=== PATIENT | female | born 1925 | race Caucasian/White ===

== ENCOUNTER 2016-12-05 22:06 | Inpatient (IN) | payer MEDICARE ==
[~2016-12-05] VITALS: Ht 162.6 cm; Wt 65.8 kg
[2016-12-05] MEDS ORDERED: VALS1TAB46 PO (22:50)
[2016-12-05] MEDS ORDERED: LEVO25TA5 PO (22:50)
[2016-12-05] MEDS ORDERED: AMLO5TAB2 PO (22:51)
[2016-12-05] MEDS ORDERED: ASPI81TA85 PO (22:52)
[2016-12-05] MEDS ORDERED: CENT1TAB PO (22:54)
[2016-12-05] MEDS ORDERED: ALEV220C2 PO (22:54)
[2016-12-05] MEDS ORDERED: D32000CA PO (22:54)
--- NOTE | 2016-12-05 23:20 | REPUSA ---
CT of the cervical spine Clinical history: Pain. Trauma. Technique: Multiple axial CT images were obtained through the cervical spine without administration o f contrast. Coronal and sagittal 3-D reconstructed images were also obtained. Comparison: None. Findings: The cervical vertebral bodies are in satisfactory positioning and alignment. No fractures or dislocat ions are demonstrated. The odontoid process is intact. Intervertebral disc spaces are moderately narr owed at all cervical vertebral levels. There is no evidence of facet subluxation. The neural foramen appear grossly patent. The cervical cranial junction is intact. The cervical spinal canal demonstrate s normal caliber and contour without evidence of spinal stenosis. The surrounding soft tissues are wi thin normal limits. Impression: No acute fracture or traumatic injury. Multilevel degenerative disc disease is noted thro ughout the cervical spine.
--- NOTE | 2016-12-05 23:20 | REPUSA ---
CT of the head Clinical history: trauma. Protocol: Multiple axial CT images obtained with 5 mm slice thickness were obtained through the head without administration of contrast. Findings: The ventricles and sulci are symmetric but prominent in size bilaterally. There are periven tricular areas of low attenuation throughout the deep white matter. There is acute subdural hemorrhag e demonstrating the left frontal lobe. There is also a small amount of hyperdensity in the right fron luciano lobe which could represent small amount of blood. There is no midline shift, mass effect, or extr a-axial fluid collection. The osseous structures are unremarkable. The visualized paranasal sinuses a nd mastoid air cells are clear. Impression: 1. Moderate sized subdural hemorrhage in the left frontal lobe, with small foci of subdural blood dem onstrated in the right frontal lobe. 2. Findings are otherwise consistent with age-related atrophy and chronic small vessel ischemic disea se. ER physician was notified of these findings at 11:14 PM on 2016.
[2016-12-05 23:26] LABS: BASO # 0.1 K/mm3 (0.0-0.2); BASO % 0.5 % (0.0-1.0); EOS # 0.2 K/mm3 (0.0-0.50); EOS % 1.4 % (0.0-3.0); LARGE UNSTAINED CELL # 0.2 K/mm3 (0.0-0.4); LYMPH # 2.1 K/mm3 (1.5-4.5); LYMPH % 17.4 % (24.0-44.0); MEAN CORPUSCULAR HEMOGLOBIN 31.4 pg (27.0-33.0); MEAN CORPUSCULAR HGB CONC 33.8 g/dl (32.0-36.5); MEAN CORPUSCULAR VOLUME 93.1 fl (80.0-96.0); MONO # 0.7 K/mm3 (0.0-0.8); MONO % 6.2 % (0.0-5.0); NEUTROPHILS # 7.8 K/mm3 (1.8-7.7); NEUTROPHILS % 72.5 % (36.0-66.0); PLATELET COUNT, AUTOMATED 218 k/mm3 (150-450); RED CELL DISTRIBUTION WIDTH 12.4 % (11.5-14.5); WHITE BLOOD COUNT 10.8 K/mm3 (4.0-10.0)
[2016-12-06] VITALS (10 sets, daily range): BP systolic 147–202; BP diastolic 65–81
[2016-12-06] MEDS ORDERED: LEVO50TA45 PO (00:01)
[2016-12-06] MEDS ORDERED: VITMTA PO (00:01)
[2016-12-06 00:13] LABS: CALCIUM LEVEL 9.2 MG/DL (8.8-10.2); CREATININE FOR GFR 1.28 MG/DL (0.55-1.02); GLOMERULAR FILTRATION RATE 41.8 (>32); POTASSIUM SERUM 4.3 MEQ/L (3.5-5.1)
[2016-12-06] MEDS: ACETAMINOPHEN TAB 650MG DOSE (2X325MG) PO SCH ×2 (01:29→06:13)
--- NOTE | 2016-12-06 01:57 | CR ---
DATE OF CONSULTATION: 12/05/2016 REQUESTING ATTENDING PHYSICIAN: Dr. Connors, neurosurgery. REASON FOR CONSULTATION: Medical management. HISTORY OF PRESENT ILLNESS: The patient is an 89-year-old white female with history of high blood pressure, presented to the emergency room (ER) for evaluation of fall. History is provided by herself. The patient is from [place] and she is visiting her son in the area. This evening she fell at home. She denies any syncope or seizure activity. The family brought her here for further evaluation. In the ER, she underwent CT scan of her head, which demonstrated mild subdural hemorrhage. Neurosurgical service admitted her. Meanwhile, medicine service was requested for consultation regarding her medical management. REVIEW OF SYSTEMS: Denies fever. No chills. No headache. No blurry vision. No shortness of breath. No neck pain. No chest pain. No abdominal pain. No tingling, numbness, weakness in the arms, lower extremities. All other systems reviewed were negative. PAST MEDICAL HISTORY: 1. Hypertension. 2. Hypothyroidism. PAST SURGICAL HISTORY: Status post hysterectomy. SOCIAL HISTORY: Denies tobacco use. Denies alcohol abuse. Denies illicit drug abuse. She is FULL CODE. FAMILY HISTORY: Both parents . No family history of stroke or brain hemorrhage. ALLERGIES: No known drug allergies. MEDICATIONS: - Diovan 80 mg by mouth daily - amlodipine 5 mg by mouth daily - aspirin 81 mg by mouth daily - thyroid 50 mcg by mouth daily - multiple vitamin once a day PHYSICAL EXAMINATION: VITAL SIGNS: Temperature 98, heart rate 82, respirations 18, blood pressure 170/80, and oxygen saturation 98% on room air. GENERAL: She is awake, alert, oriented times three. She is not in acute distress. HEENT: Atraumatic. Pupils are equal, round and reactive to light. No jaundice. Ears, nose, and throat are normal. Moist mucosa. Moist neck. No jugular venous distention (JVD). No tenderness. LUNGS: Clear, no wheezing, no crackles. HEART: S1, S2 regular. She has a 4/6 systolic murmur in her heart base. ABDOMEN: Soft. Bowel sounds positive. Nontender. LOWER EXTREMITIES: No edema in bilateral lower extremities. NEUROLOGICAL: Nonfocal. SKIN: No rash. PSYCHOLOGICAL: No acute psychosis. DIAGNOSTIC LABORATORY STUDIES: Including the following: CBC and differential: WBC 10, hemoglobin and hematocrit 13/30, platelets 218. Sodium 138, potassium 4.3, BUN 33, creatinine 1.2, glucose 154. Cervical spine CT did not show any fractures. Head CT showed small to moderate sized subdural hemorrhage in the left frontal lobe. IMPRESSION: 1. Subdural hemorrhage, small, without any neurological deficit, due to a fall. 2. Hypertension. 3. Hypothyroidism. PLAN: Patient will be admitted to the progressive care unit (PCU) per neurosurgical service. I will restart her antihypertensive medications, will hold aspirin. Dr. Darden from medicine service will followup. GERRI
[2016-12-06] MEDS: LEVOTHYROXINE 50MCG TABLET (0.05MG) PO SCH (06:13)
--- NOTE | 2016-12-06 06:34 | ECGEPIP ---
Stationary ECG Study [facility] - ED Test Date: 2016-12-06 Pat Name: DEAN MEDEIROS Department: Room: [place] [address] Gender: F Baler: CAM : [id number] Requested By: Jann Nathan Order Number: [id number] Reading MD: Jann Mazariegos Measurements Intervals Carbon Rate: 85 P: 62 CT: 187 QRS: -24 QRSD: 113 T: 60 QT: 402 QTc: 479 Interpretive Statements SINUS RHYTHM WITH OCCASIONAL VENTRICULAR PREMATURE COMPLEXES LEFT ATRIAL ENLARGEMENT BORDERLINE LEFT AXIS DEVIATION MODERATE INTRAVENTRICULAR CONDUCTION DELAY NO PRIORS Electronically Signed On 12-06-2016 6:33:50 EDT by Jann Mazariegos
[2016-12-06 07:55] LABS: MEAN CORPUSCULAR HEMOGLOBIN 31.7 pg (27.0-33.0); MEAN CORPUSCULAR HGB CONC 34.1 g/dl (32.0-36.5); MEAN CORPUSCULAR VOLUME 92.8 fl (80.0-96.0); RED CELL DISTRIBUTION WIDTH 12.5 % (11.5-14.5); WHITE BLOOD COUNT 8.1 K/mm3 (4.0-10.0)
[2016-12-06 08:26] LABS: CALCIUM LEVEL 9.1 MG/DL (8.8-10.2); GLOMERULAR FILTRATION RATE 55.6 (>32); POTASSIUM SERUM 4.4 MEQ/L (3.5-5.1)
[2016-12-06] MEDS: VALSARTAN 80 MG TAB (DIOVAN) PO SCH (08:50)
[2016-12-06] MEDS: amLODIPine 5 MG TAB PO SCH ×2 (08:50→20:19)
[2016-12-06] MEDS: MULTIVITAMINS/MINERALS THERAP 1 TAB PO SCH (08:50)
[2016-12-06] MEDS: VITAMIN D 1,000 INTERNATIONAL UNITS TABLET PO SCH (08:50)
[2016-12-06] MEDS ORDERED: amLODIPine 5 MG TAB PO SCH (09:00)
[2016-12-06] MEDS ORDERED: ACETAMINOPHEN TAB 650MG DOSE (2X325MG) PO PRN (09:30)
[2016-12-06] MEDS ORDERED: ISOVUE-370 76% 100ML VIAL (Q9967) As Ordered ONE (09:42)
--- NOTE | 2016-12-06 09:55 | REP ---
REASON: Pain after trauma. COMPARISON: None. FINDINGS: The technique utilized in obtaining the radiograph has magnified the cardiac silhouette and accentuated the interstitial markings. The superior mediastinal structures are midline. The cardiac silhouette is unremarkable in size, shape, and position. The diaphragmatic surfaces of the lungs are regular, and the costophrenic angles are clear. The pulmonary romero are clear. The imaged osseous structures are intact. IMPRESSION: There is no acute cardiopulmonary disease. Signed by Marko Tapia DO 12/06/2016 10:17 A
--- NOTE | 2016-12-06 10:45 | REP ---
REASON: Followup subdural hematoma. COMPARISON: Yesterday at 11:00 p.m. Increased density is again seen along the insular cortex on the left status quo. There is a small focus of increased density seen in the right frontal lobe deep white matter status quo. There are no other intracranial hemorrhages and there is no evidence of significant change from the prior exam. IMPRESSION: Stable intraparenchymal hemorrhages as described above. Signed by Marko Tapia DO 12/06/2016 11:13 A
--- NOTE | 2016-12-06 15:07 | IPN ---
DATE: 12/06/2016 SUBJECTIVE: The patient is seen and examined at the bedside. Chart has been reviewed. This morning, the patient has a cervical collar. Telemetry is unremarkable. Blood pressure is improved to 147-157 on current dose of Norvasc 5 mg daily. Currently denies any upper or lower extremity weakness, numbness sensation, dysphagia, odynophagia, slurred speech. No issues per nursing. Anxious to go home and eat. OBJECTIVE: VITAL SIGNS: Temperature 97.2, pulse 76, respiratory rate 20, blood pressure 157/69, 99% on room air. GENERAL: The patient is awake, alert, and oriented times three. Pupils equal, round, and reactive to light and accommodation. Extraocular muscles are intact. Normocephalic. Patient with cervical collar. Moist mucous membranes. LUNGS: Clear to auscultation. No wheezes, rales, or rhonchi. HEART: S1, S2 sinus rhythm. ABDOMEN: Soft, nontender, nondistended. EXTREMITIES: No pitting edema. NEUROLOGIC: Patient's motor function 5/5 times four extremities. Gait was not tested. The patient speaks in full sentences. No dysmetria on [id number] testing. No sensory disturbance. LABORATORY DATA: 12/05 CBC and metabolic panel have been reviewed. IMAGING: CT of the head shows moderate-sized subdural hematoma left frontal lobe, and small foci of subdural blood in the right frontal lobe. Findings consistent with chronic small vessel ischemic disease, age-related atrophy. Cervical spine CT: No acute fracture. Multiple degenerative disc disease noted throughout the cervical spine. ASSESSMENT AND PLAN: An 89-year-old female with history of hypothyroidism, hypertension, presented status post a fall at home with subdural hemorrhage, no neurological deficits. Hospitalist service was called for management of chronic medical problems. CURRENT ISSUES: 1. Subdural hematoma managed by primary team. Avoid non-steroidal anti-inflammatory drugs (NSAIDs) and blood thinners. Continue on compression stockings for deep venous thrombosis (DVT) prophylaxis. 2. Hypertension, improvement. Will change Norvasc to 5 mg twice a day and continue valsartan 80 mg daily. 3. Hypothyroidism. Check thyroid stimulating hormone (TSH). Continue on levothyroxine. DISPOSITION: The patient is anxious to eat and to go home today, but will defer to primary team regarding keeping the patient nothing by mouth for any possible neurosurgical intervention. The patient will need home care. She lives alone, and her son and [id number] live in [place], and will need to return due to work responsibilities today. The patient has no other support system in the area. She will need home care at discharge.
--- NOTE | 2016-12-06 20:24 | CR ---
DATE OF CONSULTATION: 12/06/2016 REFERRING PHYSICIAN: Dr. Lopez Connors REASON FOR CONSULTATION: Fall and intracerebral hemorrhages. HISTORY: Brianda Tobin is an 89-year-old woman with history of hypertension who presented to [facility] emergency department after a fall. History was obtained from the patient and her son who was present in intensive care unit room. The patient is from [place] and she is visiting her son in this area. She was at home and was feeling great and had her slippers on and was going upstairs. It was around 09:15 p.m. There was no warning and next thing she remembers is that her son was trying to help her off the floor where she had fallen 14 flights of stairs. She denies any warning. Her son who heard the noise, was able to reach her within seconds after she fell. She does not remember the fall but does not think that she lost consciousness. She appeared disoriented. Son called [id number] and he was brought to [facility]. She was taking aspirin 81 mg daily before she fell. She denies any head injuries in past. She denies any headaches, neck pain or back pain. She denies any medication changes or sickness recently. She denies passing out spells or seizures in past. PAST MEDICAL HISTORY: Hypertension, hypothyroidism, hysterectomy. SOCIAL HISTORY: She denies smoking, alcohol or illicit drugs. FAMILY HISTORY: Her parents are . There is no family history of stroke or cerebral hemorrhage. ALLERGIES: None. HOME MEDICATIONS: - Diovan 80 mg by mouth daily - amlodipine 5 mg by mouth daily - aspirin 81 mg by mouth daily - levothyroxine 50 mcg by mouth daily - multivitamin one tablet by mouth daily REVIEW OF SYSTEMS: All systems were reviewed and found to be noncontributory except as mentioned in history present illness. PHYSICAL EXAMINATION: Temperature 97.5, pulse 77, respiratory rate 20, blood pressure 192/79, 99% saturation on room air. Heart: Regular rate and rhythm. Lungs: Clear to auscultation. No pedal edema. Ear, nose, and throat examination is within normal limits. No gross musculoskeletal abnormalities. The patient is awake, alert, oriented to place, person and time. Normal speech comprehension and repetition. Extraocular muscles are intact. No facial weakness. Tongue and uvula are midline. Recent and distant memory is intact. 5/5 strength in all four extremities. Deep tendon reflexes are 2+ throughout. Normal sensation. Plantars are downgoing. Gait is mildly unsteady. DIAGNOSTIC STUDIES: CT scan of head was reviewed and showed small left frontal and central intracerebral hemorrhage with mild subarachnoid hemorrhage which appears improved on today's CT scan of head. ASSESSMENT: 1. Suspected posttraumatic left frontal and central intracerebral and subarachnoid hemorrhage. 2. There is concern for syncope and seizure. PLAN: 1. CT angiography of head to rule out cerebral aneurysm. 2. EEG. 3. I had detailed discussions with the patient and her son about risk of posttraumatic seizures and use of antiepileptic drugs. We will hold off from any anti-epileptic drugs unless EEG is suggestive of epileptic potential. 4. Physical and occupational therapy. 5. Repeat CT scan of head tomorrow. 6. Follow with our office in 3-4 weeks after hospital discharge.
[2016-12-07] VITALS (25 sets, daily range): BP systolic 54–207; BP diastolic 31–84
[2016-12-07] MEDS: LEVOTHYROXINE 50MCG TABLET (0.05MG) PO SCH (06:18)
[2016-12-07] MEDS ORDERED: CHLORTHALIDONE 25 MG TAB PO ONE (07:00)
[2016-12-07] MEDS ORDERED: CANDESARTAN 4MG TABLET PO ONE (07:00)
--- NOTE | 2016-12-07 07:49 | IPN ---
DATE: 12/07/2016 No issues overnight per nursing. Telemetry remains unremarkable, sinus rhythm. She has no new complaints this morning. Denies any headaches, changes in vision, numbness, tingling sensation bilateral upper or lower extremities or any weakness. Denies any dysphagia, odynophagia. Speaks in full sentences. No respiratory distress. No respiratory distress. No complaints of chest pain, pressure or tightness, shortness of breath, palpitations, lightheadedness or dizziness. Temperature 98.7, pulse 71, respiratory rate 20, blood pressure 167/72, 97% on room air. Generally, patient is awake, alert, oriented to person, place and time. She is answering questions appropriately. Speech is fluent. No facial asymmetry. Tongue is midline. No cervical lymphadenopathy or thyromegaly. Pupils are round and reactive to light and accommodation. Extraocular muscles are intact. Normocephalic, atraumatic. Lungs are clear to auscultation. No wheezing, rales or rhonchi. Heart: S1 and S2, sinus rhythm. Abdomen soft, nontender, nondistended. Positive bowel sounds times four quadrants. No rebound, guarding or hepatosplenomegaly. Extremities: No cyanosis or clubbing. Motor function 5/5 times four extremities. Gait was not tested. No dysmetria on [id number]-[id number] testing. LABORATORY DATA: White count 8, hemoglobin 11.9, hematocrit 35, platelet count 191. Sodium 138, potassium 4.4, chloride 104, bicarbonate 27, BUN 34, creatinine 1, and glucose of 121. IMAGING STUDY: CT angiography of the brain, pending official report, within normal limits on preliminary report on [facility]. ASSESSMENT AND PLAN: This is an 89-year-old female who lives alone, son and [id number] live in [place], history of hypothyroidism, hypertension, presented status post fall at home with subdural hemorrhage with no neurological deficits. Hospitalist service was consulted for management of chronic medical problems. CURRENT ISSUES: 1. Subdural hematoma managed by primary team. Avoid nonsteroidal anti- inflammatory drugs (NSAIDs) and blood thinners. Currently on compression stockings. No aneurysm noted in the on the CT of brain done yesterday. EEG to rule out seizure activity. Will repeat CT of the head without contrast this morning. Continue with neuro checks. 2. Hypertension uncontrolled. Continue Norvasc 5 mg twice a day, valsartan 80 mg daily and add chlorthalidone 25 mg daily - hold for systolic pressure less than 140. 3. Acute kidney injury resolved. Patient is to have physical therapy (PT) evaluation today. Patient and family services (PFS) has been consulted as patient will need home car at discharge due to patient living alone with no other family support system.
[2016-12-07] MEDS: VALSARTAN 80 MG TAB (DIOVAN) PO SCH (08:27)
[2016-12-07] MEDS: amLODIPine 5 MG TAB PO SCH (08:27)
[2016-12-07] MEDS: VITAMIN D 1,000 INTERNATIONAL UNITS TABLET PO SCH (08:27)
[2016-12-07] MEDS: MULTIVITAMINS/MINERALS THERAP 1 TAB PO SCH (08:28)
--- NOTE | 2016-12-07 09:33 | REP ---
History: Intracranial hemorrhage A small amount of acute hemorrhage is present along the insular cortex of the left temporal lobe. A punctate focus of hemorrhage is present in the right frontal lobe. These are unchanged compared the previous study. Areas of decreased attentuation are present in the periventricular white matter. This represents small vessel ishemic disease. An area of decreased attentuation is present in the left thalamus. This presents an old lacunar infarction. The ventricular system and cortical sulci are dilated consistent with mild volume loss. There is no extracerebral collection. IMPRESSION: 1. There has been no change in the hemorrhage present along the left insular cortex and right frontal lobe compared to the previous study. 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 3. Small vessel ischemic disease. 4. Mild volume loss. Signed by Uziel Art MD 12/07/2016 09:51 A
--- NOTE | 2016-12-07 10:07 | REP ---
CT ANGIO HEAD: HISTORY: Rule out aneurysm. CONTRAST: Isovue 370, 75 mL. There is no aneurysm or arteriovenous malformation. Calcified atherosclerotic plaques are present in the cavernous and supraclinoid internal carotid arteries. These produce mild to moderate stenosis. Calcified atherosclerotic plaques are present in the distal vertebral arteries at the craniovertebral junction. There is no significant stenosis. Major intracranial vessels are patent. The left vertebral artery is dominant. IMPRESSION: 1. There is no aneurysm or arteriovenous malformation. 2. Atherosclerotic disease as described above. Signed by Uziel Art MD 12/07/2016 10:33 A
[2016-12-07] MEDS ORDERED: VALSARTAN 80 MG TAB (DIOVAN) PO ONE (11:00)
[2016-12-07] MEDS ORDERED: cloNIDine 0.2 MG TAB PO ONE (11:45)
[2016-12-07] MEDS ORDERED: SODIUM CHLORIDE 0.9% 1000 ML IV ONE (14:00)
[2016-12-07] MEDS ORDERED: amLODIPine 5 MG TAB PO ONE (21:00)
--- NOTE | 2016-12-07 21:54 | IPNPDOC ---
Date Seen The patient was seen on 12/07/16. Progress Note NEUROSURGERY-- ADEOLA Cox dictating note on behalf of Dr Connors. I had no interaction with the patient today. Admission day: 2 Pain Control: satisfactory. She has been evaluated by neurology-- Holding off on anti-epileptic until EEG results. She denies any new symptoms today. She states her children are in [place]. Her son owns a condo on [address] and they were spending the weekend there. The family has returned to [place] and she does not have family in town here. LABS: (12/06/16) WBC: 8.1 HGB: 11.9, L Na+: 138 K+: 4.4 Fasting glucose: 121, H IMAGIN12/06/16, CT Angio head. No aneurysm or arteriovenous malformation. ASSESSMENT: Stable. PLAN: 1. Subdural hematoma s/p fall. Stay off aspirin for 2 weeks. Plan for EEG in the morning. She will need to follow up with neurology after discharge. No need to follow up with NSx. Additional plans per Dr Connors. 2. Pain control: satisfactory with Tylenol 650 mg PO q 6 hrs PRN. VS, I&O, 24H, Fishbone Vital Signs/I&O Vital Signs Date Time Temp Pulse Resp B/P (MAP) Pulse Ox O2 Delivery O2 Flow Rate FiO2 12/07/16 16:15 67 111/54 (73) 12/07/16 16:00 97.8 20 94 Room Air I&O- Last 24 Hours up to 6 AM 12/07/16 05:59 Intake Total 960 ml Output Total 700 ml Balance 260 ml ALEXYS BINGHAM PA-C Dec 07, 2016 21:49
[2016-12-08] VITALS (26 sets, daily range): BP systolic 122–195; BP diastolic 57–96
[2016-12-08] MEDS: LEVOTHYROXINE 50MCG TABLET (0.05MG) PO SCH (06:01)
[2016-12-08 07:22] LABS: BASO % 0.5 % (0.0-1.0); EOS # 0.2 K/mm3 (0.0-0.50); LARGE UNSTAINED CELL # 0.2 K/mm3 (0.0-0.4); LYMPH # 1.8 K/mm3 (1.5-4.5); LYMPH % 19.8 % (24.0-44.0); MEAN CORPUSCULAR HEMOGLOBIN 31.4 pg (27.0-33.0); MEAN CORPUSCULAR HGB CONC 33.1 g/dl (32.0-36.5); MEAN CORPUSCULAR VOLUME 94.7 fl (80.0-96.0); MONO # 0.6 K/mm3 (0.0-0.8); NEUTROPHILS # 5.6 K/mm3 (1.8-7.7); NEUTROPHILS % 68.7 % (36.0-66.0); PLATELET COUNT, AUTOMATED 184 k/mm3 (150-450); RED CELL DISTRIBUTION WIDTH 12.7 % (11.5-14.5); WHITE BLOOD COUNT 8.2 K/mm3 (4.0-10.0)
[2016-12-08 07:48] LABS: ANION GAP 8 MEQ/L (8-16); BLOOD UREA NITROGEN 34 MG/DL (7-18); CALCIUM LEVEL 8.7 MG/DL (8.8-10.2); CARBON DIOXIDE LEVEL 27 MEQ/L (21-32); CHLORIDE LEVEL 107 MEQ/L (98-107); CHOLESTEROL LEVEL 160 MG/DL (<200); CREATININE FOR GFR 0.88 MG/DL (0.55-1.02); GLOMERULAR FILTRATION RATE > 60.0 (>32); GLUCOSE, FASTING 97 MG/DL (83-110); POTASSIUM SERUM 4.1 MEQ/L (3.5-5.1); SODIUM LEVEL 142 MEQ/L (136-145); TRIGLYCERIDES LEVEL 93 MG/DL (<150)
[2016-12-08] MEDS: MULTIVITAMINS/MINERALS THERAP 1 TAB PO SCH (08:42)
[2016-12-08] MEDS: VITAMIN D 1,000 INTERNATIONAL UNITS TABLET PO SCH (08:43)
[2016-12-08] MEDS: CHLORTHALIDONE 25 MG TAB PO SCH (08:43)
[2016-12-08] MEDS ORDERED: VALSARTAN 80 MG TAB (DIOVAN) PO SCH (09:00)
[2016-12-08] MEDS ORDERED: CANDESARTAN 4MG TABLET PO SCH (09:00)
[2016-12-08] MEDS ORDERED: METOPROLOL TART 25 MG TABLET PO SCH (12:30)
[2016-12-08] MEDS: METOPROLOL TART 12.5 MG PER 1/2 TAB PO SCH ×2 (12:36→19:19)
--- NOTE | 2016-12-08 18:27 | IPN ---
DATE: 12/08/2016 SUBJECTIVE: The patient is seen and examined in the room today. The patient denies any acute complaints. Denies any neurological changes. OBJECTIVE: VITAL SIGNS: Temperature is 99.2, pulse is 68, respiration rate 20, blood pressure is 167/74, pulse oximetry is 97% in room air. GENERAL: No sign of acute distress. Alert and oriented times three. HEENT: Normocephalic, atraumatic. Extraocular motor grossly intact. CARDIOVASCULAR: Positive S1, S2, regular rate. LUNGS: Clear to auscultation bilaterally. ABDOMEN: Soft, nontender, nondistended. Bowel sounds present. EXTREMITIES: No edema, no sign of cyanosis. LABORATORY DATA: WBC 8.2, hemoglobin 11.2, hematocrit 33.8, platelet count is 184. Sodium is 142, potassium 4.1, chloride is 107, carbon dioxide 27, BUN 34, creatinine 0.88, GFR greater than 60, fasting glucose 97, calcium is 8.7, triglycerides 93, total cholesterol is 160, LDL is 92.4, HDL is 49. ASSESSMENT AND PLAN: 1. Subdural hematoma. Primary team was neurosurger; however, the neurosurgeon does not feel the patient requires any intervention and continue with medical management. The patient will have an electroencephalogram (EEG) performed today. Continue with neurologic checks. Repeat CT of the head was performed yesterday, which did not show any worsening of the hematoma. 2. Uncontrolled hypertension. The patient continues to have large fluctuation of blood pressures. The patient's Norvasc increased to 10 mg by mouth nightly. The patient is also on chlorthalidone 25 mg by mouth daily. The patient is also on metoprolol tartrate 12.5 mg by mouth twice a day. The patient is also on valsartan 160 mg by mouth twice a day. Will continue to monitor the patient's blood pressures. There was an incident on 12/07/2016 where the patient had uncontrolled hypertensive urgency. Systolic blood pressure was greater than 207 and multiple adjustments were made, and the patient had acute decrease of blood pressure and heart rate. The MAP was 39 with heart rate less than 50s. Will be very cautious regarding the patient's blood pressure medication at this time. 3. Hypothyroidism. Normal thyroid-stimulating hormone (TSH). The patient is on Synthroid 50 mcg by mouth daily. 4. Deep vein thrombosis (DVT) prophylaxis. Currently due to subdural hematoma, no anticoagulation. The patient is on knee-high sequential compression.
[2016-12-08] MEDS: VALSARTAN 80 MG TAB (DIOVAN) PO SCH (19:19)
[2016-12-08] MEDS: amLODIPine 10 MG TAB PO SCH (21:28)
[2016-12-09] VITALS (12 sets, daily range): BP systolic 139–181; BP diastolic 64–82
[2016-12-09 05:13] LABS: MEAN CORPUSCULAR HEMOGLOBIN 31.7 pg (27.0-33.0); MEAN CORPUSCULAR HGB CONC 33.9 g/dl (32.0-36.5); MEAN CORPUSCULAR VOLUME 93.5 fl (80.0-96.0); RED CELL DISTRIBUTION WIDTH 12.5 % (11.5-14.5); WHITE BLOOD COUNT 9.2 K/mm3 (4.0-10.0)
[2016-12-09 05:38] LABS: ANION GAP 10 MEQ/L (8-16); BLOOD UREA NITROGEN 30 MG/DL (7-18); CALCIUM LEVEL 8.5 MG/DL (8.8-10.2); CARBON DIOXIDE LEVEL 26 MEQ/L (21-32); CHLORIDE LEVEL 105 MEQ/L (98-107); CREATININE FOR GFR 0.85 MG/DL (0.55-1.02); GLOMERULAR FILTRATION RATE > 60.0 (>32); GLUCOSE, FASTING 108 MG/DL (83-110); POTASSIUM SERUM 3.9 MEQ/L (3.5-5.1); SODIUM LEVEL 141 MEQ/L (136-145)
[2016-12-09] MEDS: LEVOTHYROXINE 50MCG TABLET (0.05MG) PO SCH (05:51)
--- NOTE | 2016-12-09 07:37 | EEG ---
DATE OF PROCEDURE: 12/08/2016 REFERRING PHYSICIAN: Dr. Lopez Connors REASON FOR EEG: Rule out seizure. HISTORY: The patient is an 89-year-old woman who was admitted at [facility] due to post-traumatic left frontal intracerebral and subarachnoid hemorrhage. This EEG was done to rule out epileptic potential. She is currently on valsartan, amlodipine, chlorthalidone, levothyroxine. TECHNICAL DESCRIPTION: This digital EEG was recorded by 21 scalp, ear and two EKG electrodes and was reviewed in bipolar and referential montages following reformatting in 10-20 international electrode placement system. INTERPRETATION: The patient was noted to be in awake and drowsy states during this EEG. Resting awake background rhythm consisted of well-formed posterior dominant flow with anterior/posterior gradient comprising of 9 Hz alpha activity measuring 15- 40 microvolts in amplitude, both symmetric and reactive to eye opening. Attenuation of posterior dominant was seen during transition into drowsiness. Stage I and II sleep were reviewed and were symmetric bilaterally. Hyperventilation could not be performed. Photic stimulation remained unremarkable. EKG revealed normal sinus rhythm. No focal, lateralizing or epileptiform abnormalities were seen. No clinical or electrographic seizures were recorded. CONCLUSION: This EEG in awake, drowsy states, stage I and II sleep is within normal limits.
[2016-12-09] MEDS: METOPROLOL TART 12.5 MG PER 1/2 TAB PO SCH ×2 (09:33→20:19)
[2016-12-09] MEDS: VITAMIN D 1,000 INTERNATIONAL UNITS TABLET PO SCH (09:33)
[2016-12-09] MEDS: VALSARTAN 80 MG TAB (DIOVAN) PO SCH ×2 (09:33→20:19)
[2016-12-09] MEDS: MULTIVITAMINS/MINERALS THERAP 1 TAB PO SCH (09:33)
[2016-12-09] MEDS: CHLORTHALIDONE 25 MG TAB PO SCH (09:33)
--- NOTE | 2016-12-09 17:14 | IPN ---
DATE: 12/09/2016 SUBJECTIVE: The patient is seen and examined in the room today. The patient denies any acute complaints or acute changes. 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 Denies any neurological changes. The patient still has intermittent hypertension. Denies any acute pain. OBJECTIVE: VITAL SIGNS: Temperature 98.9, pulse is 69, respirations 18, blood pressure is 157/69, pulse oximetry is 95% in room air. GENERAL: No sign of acute distress, alert and oriented times three. HEENT: Normocephalic, atraumatic. Extraocular motor grossly intact. CARDIOVASCULAR: Positive S1, S2, regular rate. LUNGS: Clear to auscultation bilaterally. ABDOMEN: Soft, nontender, nondistended. Bowel sounds present. No rebound. No guarding. EXTREMITIES: No edema. No sign of cyanosis. LABORATORY DATA: WBC 9.2, hemoglobin 11.5, hematocrit 34.1, platelet count is 205. Sodium is 141, potassium 3.9, chloride 105, carbon dioxide 26, BUN 30, creatinine 0.85, GFR greater than 60, fasting glucose 108, calcium is 8.5. ASSESSMENT AND PLAN: 1. Subdural hematoma. Neurosurgery does not feel that the patient requires any intervention and they will sign off the case. They recommend continuing with medical management. We will followup with electroencephalogram (EEG). Continue with neurologic checks every six hours. Currently, the patient does not have any neurological deficit. The patient continues to work with physical therapy. Unfortunately, the patient is not cleared for discharge at this moment. 2. Uncontrolled hypertension. The patient continues to have large fluctuation of her blood pressures. Blood pressure medication is being actively adjusted. On 12/07/2016, the patient had a persistent, uncontrolled hypertensive urgency and medications were adjusted, but there was an incident when the patient's mean arterial pressure (MAP) dropped down to 35 with a heart rate less than 50. The patient's vital signs recovered with withholding the medication. Now, we will adjust the blood pressure medication with caution. Currently, the patient does not have any blood pressure greater than 180. Blood pressure averages between 140s to 160s. The patient already maxed the dosage for Norvasc and valsartan. The patient is currently on chlorthalidone and metoprolol. 3. Hypothyroidism. Normal thyroid-stimulating hormone (TSH), on Synthroid 50 mcg by mouth daily. 4. Deep vein thrombosis (DVT) prophylaxis. Due to the subdural hematoma, no anticoagulation for the patient. The patient is on thromboembolic-deterrent stockings (TEDS) and sequential compression device.
[2016-12-09] MEDS: amLODIPine 10 MG TAB PO SCH (20:19)
[2016-12-10] MEDS: LEVOTHYROXINE 50MCG TABLET (0.05MG) PO SCH (05:53)
[2016-12-10 06:05] VITALS: BP 140/68
[2016-12-10 06:48] LABS: ANION GAP 10 MEQ/L (8-16); BLOOD UREA NITROGEN 27 MG/DL (7-18); CALCIUM LEVEL 8.6 MG/DL (8.8-10.2); CARBON DIOXIDE LEVEL 27 MEQ/L (21-32); CHLORIDE LEVEL 102 MEQ/L (98-107); CREATININE FOR GFR 0.88 MG/DL (0.55-1.02); GLOMERULAR FILTRATION RATE > 60.0 (>32); GLUCOSE, FASTING 95 MG/DL (83-110); POTASSIUM SERUM 3.8 MEQ/L (3.5-5.1); SODIUM LEVEL 139 MEQ/L (136-145)
[2016-12-10 06:50] LABS: MEAN CORPUSCULAR HEMOGLOBIN 32.2 pg (27.0-33.0); MEAN CORPUSCULAR HGB CONC 35.2 g/dl (32.0-36.5); MEAN CORPUSCULAR VOLUME 91.5 fl (80.0-96.0); RED CELL DISTRIBUTION WIDTH 12.6 % (11.5-14.5); WHITE BLOOD COUNT 8.7 K/mm3 (4.0-10.0)
[2016-12-10] MEDS ORDERED: DIOV80TA3 PO (08:43)
[2016-12-10] MEDS ORDERED: CHLO25TA PO (08:43)
[2016-12-10] MEDS ORDERED: FOLI1TAB4 PO (08:43)
[2016-12-10] MEDS ORDERED: METO1TAB87 PO (08:43)
[2016-12-10] MEDS ORDERED: THIA100TA PO (08:43)
[2016-12-10] MEDS ORDERED: AMLO10TA2 PO (08:43)
[2016-12-10 09:51] VITALS: BP 178/76
[2016-12-10] MEDS: VALSARTAN 80 MG TAB (DIOVAN) PO SCH (09:51)
[2016-12-10] MEDS: VITAMIN D 1,000 INTERNATIONAL UNITS TABLET PO SCH (09:52)
[2016-12-10] MEDS: MULTIVITAMINS/MINERALS THERAP 1 TAB PO SCH (09:52)
[2016-12-10] MEDS: METOPROLOL TART 12.5 MG PER 1/2 TAB PO SCH (09:52)
[2016-12-10] MEDS: CHLORTHALIDONE 25 MG TAB PO SCH (09:52)
[2016-12-10 09:55] VITALS: BP 178/76
--- NOTE | 2016-12-10 20:45 | DSES ---
DATE OF ADMISSION: 12/05/2016 DATE OF DISCHARGE: 12/10/2016 PRIMARY CARE PROVIDER: None in [place], [place]. Patient's primary residence is in [place]. CONSULTANTS: Neurosurgery and neurology. PROCEDURES: None. COMPLICATIONS: None. ADMISSION/DISCHARGE DIAGNOSES: 1. Subdural hematoma. 2. Uncontrolled hypertension. 3. Hypothyroidism. HOSPITALIZATION COURSE: Patient is an 89-year-old female who presented to [facility] on 12/05/2016, after a fall. In the emergency room, CT scan was performed and demonstrated patient had subdural hematoma and neurosurgery was called to admit the patient and hospitalist team was also requested for consultation. After admission, neurology is also consulted to assist in the patient's care. Patient was monitored under telemetry and patient was assessed by the neurosurgical team. Repeated CT scan was performed on 12/06/2016 and 12/07/2016, which both showed no progression of the subdural hematoma and neurosurgery decided patient does not need intervention and the patient's care is transferred to the hospitalist team to continue the medical management. Patient's blood pressure medication has been adjusted actively. On 12/10/2016, patient remained medically stable and patient passed physical therapy and patient was discharged home with recommendation to establish with a new primary care provider in the [place] or [facility] and patient is required to followup in 1 week. Patient is recommended to followup with neurology clinic in 3 weeks. Patient is recommended to hold off the aspirin until reevaluated by the specialist. Patient is recommended not to consume alcohol after discharge. OBJECTIVE: VITAL SIGNS: Temperature 99.3, pulse 66, respiration rate 16, blood pressure 140/68, pulse oximetry 94% in room air. LABORATORY DATA: WBC 8.7, hemoglobin 11.3, hematocrit 32, platelet count 214. Sodium 139, potassium 3.8, chloride 102, carbon dioxide 27, BUN 27, creatinine 0.88, GFR greater than 60, fasting glucose 95, calcium 8.6. IMAGING STUDIES: CT of the head without contrast on 12/05/2016, showed moderate sized subdural hemorrhages in the left frontal lobe with a small foci of subdural blood demonstrated in the right frontal lobe. CT of the head without contrast on 12/06/2016, showed stable intraparenchymal hemorrhages. CT of the head without contrast on 12/07/2016, showed no change in the hemorrhage present along the left insular cortex and right frontal lobe compared to the previous study. Old left thalamic lacunar infarct. Small vessel ischemic disease. Mild volume loss. CT of the cervical spine without contrast on 12/05/2016, showed no acute fracture or traumatic injury. Multilevel degenerative disc disease. Chest x-ray on 12/05/2016, showed no acute cardiopulmonary disease. CT angiogram of the head on 12/06/2016, showed no aneurysm or arteriovenous (AV) malformation. DISCHARGE MEDICATIONS: - amlodipine 10 mg by mouth nightly - chlorthalidone 25 mg by mouth daily - folic acid 1 mg by mouth daily - metoprolol tartrate 12.5 mg by mouth twice a day - thiamine 100 mg by mouth daily - valsartan 160 mg by mouth twice a day - vitamin D3 2000 units by mouth daily - levothyroxine 50 mcg by mouth daily - multivitamin one tablet by mouth daily DISCHARGE INSTRUCTIONS: Discontinue lines. Discharge home. Activity as tolerated. Low salt diet as tolerated. Patient should establish and followup with new primary care provider in [place] or [facility] in 7 days. Patient should followup with neurologist in 3 weeks. Patient is recommended not to consume alcoholic beverages. Patient should not resume aspirin until reevaluated by the specialist. DISCHARGE TIME: Greater than 30 minutes. DISCHARGE CONDITION: Stable.
== END 2016-12-10 10:35 | disposition home or self-care (01) | DRG 86 ==
LOC: EDBD 22:06 → M ED 22:06 → M ED INP 23:28 → M ICU 12-06 01:25 → M MSPAV 12-09 12:36
PROVIDERS: ADMIT Neurological Surgery; ATTEND Internal Medicine
DX: S06.5X1A Traumatic subdural hemorrhage with loss of consciousness of 30 minutes or less, initial encounter (principal); N17.9 Acute kidney failure, unspecified; I10 Essential (primary) hypertension; E03.9 Hypothyroidism, unspecified; W18.30XA Fall on same level, unspecified, initial encounter; Y92.009 Unspecified place in unspecified non-institutional (private) residence as the place of occurrence of the external cause; Z79.899 Other long term (current) drug therapy; Z79.82 Long term (current) use of aspirin